=== PATIENT | male | born 2000 | race Caucasian/White ===

== ENCOUNTER 2021-04-27 08:19 | Emergency (ER) | payer SELFPAY ==
[~2021-04-27] VITALS: Ht 165.1 cm; Wt 86.2 kg
[2021-04-27 08:20] VITALS: BP_SYST 155
[2021-04-27 09:00] VITALS: BP_SYST 155
== END 2021-04-27 09:00 ==
LOC: SED 08:19
DX: Z00.00 Encounter for general adult medical examination without abnormal findings (principal)
CPT/HCPCS: 99283